=== PATIENT | female | born 1980 | race Caucasian/White ===

== ENCOUNTER 2016-06-25 18:50 | Emergency (ER) | payer MEDICAID ==
[2014-07-03 06:22] VITALS: BMI 25.9
[~2016-06-25 18:50] MED LIST: CLEOCIN HCL300 MG PO; DILAUDID4 MG PO; HYDROCODONE-APA1 TAB PO; KLONOPIN1 MG PO; MELATONIN 3 MG1 TAB PO; SOMA350 MG PO; VIBRAMYCIN50 MG PO; XANAX2 MG PO
== END 2016-06-25 21:07 | disposition home or self-care (01) ==
LOC: D.ER 18:50
DX: M54.5 Low back pain (principal); F17.200 Nicotine dependence, unspecified, uncomplicated

== ENCOUNTER 2017-11-23 20:33 | Emergency (ER) | payer MEDICAID ==
[2014-07-03 06:22] VITALS: BMI 25.9
== END 2017-11-23 23:55 | disposition home or self-care (01) ==
LOC: D.ER 20:33
DX: S61.213A Laceration without foreign body of left middle finger without damage to nail, initial encounter (principal); S61.215A Laceration without foreign body of left ring finger without damage to nail, initial encounter; W26.8XXA Contact with other sharp object(s), not elsewhere classified, initial encounter; Y93.H2 Activity, gardening and landscaping; Y92.017 Garden or yard in single-family (private) house as the place of occurrence of the external cause

== ENCOUNTER 2017-12-03 13:15 | Inpatient (IN) | payer MEDICAID ==
[~2017-12-03] VITALS: Ht 170.2 cm; Wt 95.0 kg
--- NOTE | ~2017-12-03 | OP ---
PATIENT NAME: MEGHANN HASKINS MEDICAL RECORD: [id number] :82 LOCATION:.[facility] D.2305 ADMISSION DATE:12/03/17 SURGEON: JUAN HOLLIDAY MD DATE OF OPERATION: 12/07/2017 SURGEON: Juan Holliday MD APPLIANCE FIXER: CHIQUITA Guo OPERATIONS PERFORMED: Right thoracoscopy, thoracotomy with total decortication, bronchoscopy. PREOPERATIVE DIAGNOSIS: Empyema. POSTOPERATIVE DIAGNOSIS: Empyema. ANESTHESIA: Double-lumen general endotracheal anesthesia. ESTIMATED BLOOD LOSS: 100 cc. COMPLICATIONS: None. SPECIMENS: 1. Pleural fluid for cultures and cytology. 2. Pleural peel for permanent pathology. COMPLICATIONS: None. DISPOSITION: ICU. OPERATIVE FINDINGS: Dense pleural peel would not allow adequate visualization with thoracoscopy, converted to thoracotomy with total decortication. Dense thick pleural rind, complete decortication, and good reexpansion with a small air leak. Operative bronchoscopy with no endobronchial lesions. OPERATIVE INDICATIONS: Trapped lung, empyema. OPERATIVE DESCRIPTION OF PROCEDURE: The patient was brought to the operating suite, general anesthesia with a double-lumen endotracheal tube was placed. Bronchoscopy performed. No endobronchial lesions noted. The patient turned in the left lateral decubitus position with appropriate padding including axillary roll, right chest sterilely prepped and draped. Incision was made below the tip of the scapula. Scope was inserted. There was no room even after removing fluid for scope. Therefore, the site was converted to a thoracotomy. A lateral thoracotomy was made. A section of rib was removed. The pleural cavity was entered. The dense pleural rind was removed carefully. All fluid and debris were removed. Lung was completely freed from the apex down to the diaphragm posterior to anterior, including in the fissures. Good reexpansion was noted. Large chest tube was placed posteriorly and anteriorly. Thorough irrigation was undertaken. Hemostasis was assured. The wound was closed with 2 running muscle layer, subcutaneous, and skin. The patient returned to supine position, extubated to the ICU in stable condition. TRANSINT:[id number] Voice Confirmation ID: [id number] DOCUMENT ID: [id number] OPERATIVE REPORT [id number] MEGHANN HASKINS JUAN HOLLIDAY MD at 0821 CC: ARLETTE DIXON MD [id number] DICTATION DATE: 12/07/172016 ASSEMBLIES AND INSTALLATIONS INSPECTOR: 12/08/17 0108 ADM IN [facility] [address] [place], [facility]
--- NOTE | ~2017-12-03 | OP ---
PATIENT NAME: MEGHANN HASKINS MEDICAL RECORD: [id number] :82 LOCATION:[facility] D.2305 ADMISSION DATE:12/03/17 SURGEON: KEEGAN REYES MD DATE OF OPERATION: 12/03/2017 SURGEON: Keegan Reyes MD ANESTHESIA: General, Dr. Ho. OPERATION PERFORMED: Insertion of right chest tube. PREOPERATIVE DIAGNOSIS: Loculated empyema, right hemithorax. POSTOPERATIVE DIAGNOSIS: Loculated empyema, right hemithorax. INDICATION FOR OPERATION: Loculated empyema. FINDINGS AT OPERATION: Loculated empyema, 1000 mL of serous fluid removed. ESTIMATED BLOOD LOSS: Less than 3 mL. DESCRIPTION OF PROCEDURE: After informed consent and adequate preoperative medication evaluation, the patient was brought to the operating room, placed on the table in supine position. After induction of general anesthesia and application of appropriate monitoring devices, the right chest was prepped and draped in sterile field, utilizing Betadine scrub, alcohol, and Betadine solution. Betadine-impregnated drape was also used. A #28 chest tube was placed in the right hemithorax with removal of the fluid. This was connected to underwater seal and suction. Sterile dressings were applied. The patient tolerated the procedure well and transferred to postanesthesia recovery in satisfactory condition. TRANSINT:[id number] Voice Confirmation ID: [id number] DOCUMENT ID: [id number] KEEGAN REYES MD at 1619 CC: [id number] DICTATION DATE: 01/08/18 1213 EXTERNAL RELATIONS MANAGER: 01/08/18 1223 DIS IN 12/13/17 [place] [address]
--- NOTE | ~2017-12-03 | CN ---
PATIENT NAME:MEGHANN CURTIS MEDICAL RECORD: [id number] : 82 LOCATION:[facility].2305 ADMIT DATE: 12/03/17 ACCOUNT: [id number] CONSULTING PHYSICIAN: ARLETTE DIXON MD REFERRING PHYSICIAN: OLAMIDE COUCH MD DATE OF CONSULTATION: 12/05/2017 CONSULT REQUESTING PHYSICIAN: Olamide Couch MD REASON FOR CONSULTATION: Large right-sided pleural effusion, pneumonia. HISTORY OF PRESENT ILLNESS: Ms. Curtis is a 37-year-old female who is sick for the last 4-5 days. It worse yesterday, the patient did have some fever. She has a cough without significant sputum production. She is also having right-sided pleuritic type chest pain and also abdominal pain, worse with deep breathing. REVIEW OF SYSTEMS: As in history of present illness. PAST MEDICAL HISTORY: 1. Asthma. 2. History of pneumonia. 3. History of kidney stone and UTIs. 4. Chronic backache. 5. Bipolar disorder and depression. PAST SURGICAL HISTORY: Lumbar laminectomy. ALLERGIES: SHE IS ALLERGIC TO SULFA, TORADOL AND TETRACYCLINE. MEDICATIONS: On Tagwhat is reviewed. PERSONAL AND SOCIAL HISTORY: The patient is a current every day smoker. She is a nondrinker. FAMILY HISTORY: Significant for cardiovascular disease in her parents. PHYSICAL EXAMINATION: GENERAL: The patient now is in acute respiratory distress. VITAL SIGNS: Blood pressure is 133/78, pulse is 107, respiration is 31, temperature 100.9, SpO2 is 91% on 4 liters nasal cannula. HEENT: Conjunctivae are pink. Sclerae are not icteric. NECK: The neck is supple. There is no JVD. CHEST: There are absent breath sounds on the right side. Dullness on percussion. There is no wheezing. HEART: Rhythm regular, normal sound, no murmur. ABDOMEN: The abdomen is soft, bowel sounds present. No hepatosplenomegaly. RECTAL: Deferred. EXTREMITIES: No cyanosis, no clubbing. There is no pedal edema. SKIN: The skin is warm, normal turgor. CENTRAL NERVOUS SYSTEM: The patient is awake and alert. There are no obvious cranial nerve abnormality. The gait was not tested. IMAGING: CTA of the chest: There is no PE. There is a large right-sided pleural effusion with compressive atelectasis of the right lung. There is CONSULT REPORT [id number] MEGHANN CURTIS consolidation of the right lung. There is left basilar consolidation. There is also some bronchiectasis. OTHER LABORATORY DATA: WBC is 29.1, hemoglobin 12.2, hematocrit 36.4, the platelet count 356. Chemistry: Sodium 134, potassium 4.3, BUN is 5, creatinine is 0.6. The bicarbonate is 17.70. ABG: The pH is 7.42, pCO2 is 35.5, pO2 is 72, bicarbonate is 23.2. IMPRESSION: 1. Acute hypoxic respiratory failure. 2. Large right pleural effusion, most likely secondary to empyema with recent fever, pleuritic type of chest pain, rule out malignant process, rule out perforated esophagus. 3. Compressive atelectasis. 4. Pneumonia, right lower lobe, most likely community-acquired pneumonia, possible strep pneumonia with aggressive pleural effusion. 5. Leukocytosis. 6. Asthma. 7. Tobacco dependence syndrome. RECOMMENDATION: 1. Continue supplemental oxygen. I spoke with Dr. Reyes. He is going to take her emergently to the OR for a VATS and possible decortication and chest tube placement. 2. Antibiotic per Dr. Davis. 3. Follow up labs and chest radiograph. 4. Xopenex and ipratropium nebulizer. 5. Add Brovana and budesonide nebulizer. The order for the thoracentesis of pleural fluid has been written. Dr. oCuch, thank you for involving me in the care of Ms. Curtis. TRANSINT:[id number] Voice Confirmation ID: [id number] DOCUMENT ID: [id number] ARLETTE DIXON MD at 1806 CC: [id number] DICTATION DATE: 12/05/17 1610 ADVERTISING COPY WRITER: 12/05/17 1852 ADM IN [facility] [address] [place] [address]
[2017-12-03 13:57] LABS: APPEARANCE CLEAR (CLEAR); BILIRUBIN NEGATIVE (NEGATIVE); COLOR YELLOW (YELLOW); GLUCOSE NEGATIVE (NEGATIVE); KETONE NEGATIVE (NEGATIVE); NITRITE NEGATIVE (NEGATIVE); PROTEIN TRACE mg/dL (NEGATIVE); UROBILINOGEN NORMAL (NORMAL)
[2017-12-03 14:00] VITALS: BP 107/57
[2017-12-03 14:33] LABS: BASOPHILS 0.1 % (0-2); EOSINOPHILS 1.3 % (0-7); HEMOGLOBIN 11.5 g/dL (12-16); IMMATURE GRANULOCYTES 0.4 % (0-5); LYMPHOCYTES 8.8 % (15-50); MCH 28.7 pg (26.0-34.0); MCHC 33.8 g/dL (31.0-37.0); MCV 84.8 fL (80.0-100.0); MEAN PLATELET VOLUME 9.4 fL (7.4-10.4); NEUTROPHILS 82.4 % (40-80); RBC 4.01 10x6/uL (4.00-5.40); RDW 12.7 % (11.5-14.5); WBC 14.4 10x3/uL (4.8-10.8)
[2017-12-03 14:41] LABS: PLATELET COUNT 310 10x3/uL (130-400)
[2017-12-03 15:00] VITALS: BP 106/61
[2017-12-03 15:04] LABS: ALBUMIN 3.4 g/dL (3.4-5.0); ALKALINE PHOSPHATASE 92 U/L (46-116); ALT (SGPT) 18 U/L (10-68); CALC OSMOLALITY 273 mosm/kg (275-300); CALCIUM 8.8 mg/dL (8.5-10.1); CARBON DIOXIDE 25.3 mmol/L (21.0-32.0); CHLORIDE - SERUM 101 mmol/L (98-107); CREATININE - SERUM 0.8 mg/dL (0.6-1.3); GLUCOSE 112 mg/dL (74-106); POTASSIUM - SERUM 4.1 mmol/L (3.5-5.1); PROTEIN - SERUM 7.4 g/dL (6.4-8.2); SODIUM 137 mmol/L (136-145); UREA NITROGEN 9 mg/dL (7-18); eGFR NON AFRICAN AMERICAN 86 mL/min (90-120)
[2017-12-03 19:02] VITALS: BP 108/64
[2017-12-03 21:10] VITALS: BP 115/57
[2017-12-04] VITALS (7 sets, daily range): BP systolic 112–144; BP diastolic 57–74; BMI 29.0
[2017-12-04 00:38] LABS: HCG URINE NEGATIVE (NEGATIVE)
[2017-12-04 00:41] LABS: APPEARANCE CLEAR (CLEAR); BILIRUBIN NEGATIVE (NEGATIVE); COLOR YELLOW (YELLOW); GLUCOSE NEGATIVE (NEGATIVE); KETONE NEGATIVE (NEGATIVE); NITRITE NEGATIVE (NEGATIVE); PROTEIN NEGATIVE (NEGATIVE); UROBILINOGEN NORMAL (NORMAL)
[2017-12-04 00:43] LABS: BACTERIA MODERATE /hpf (NONE SEEN); EPITHELIAL CELLS 0-5 /hpf (0-5); MUCUS <1+ /lpf (NONE SEEN); RED CELLS - URINE 0-5 /hpf (0-5); WHITE CELLS - URINE 0-5 /hpf (0-5)
[2017-12-04 00:54] LABS: UDS - AMPHET POSITIVE QUAL (NEGATIVE); UDS - BARB NEGATIVE QUAL (NEGATIVE); UDS - BENZO POSITIVE QUAL (NEGATIVE); UDS - COCAINE NEGATIVE QUAL (NEGATIVE); UDS - OPIATE POSITIVE QUAL (NEGATIVE); UDS - PCP NEGATIVE QUAL (NEGATIVE); UDS - THC NEGATIVE QUAL (NEGATIVE)
[2017-12-04 13:38] LABS: HEMATOCRIT 35.9 % (36.0-48.0); HEMOGLOBIN 12.3 g/dL (12-16); MCH 28.9 pg (26.0-34.0); MCHC 34.3 g/dL (31.0-37.0); MCV 84.5 fL (80.0-100.0); MEAN PLATELET VOLUME 9.6 fL (7.4-10.4); PLATELET COUNT 256 10x3/uL (130-400); RBC 4.25 10x6/uL (4.00-5.40); RDW 12.8 % (11.5-14.5); WBC 25.8 10x3/uL (4.8-10.8)
[2017-12-04 14:05] LABS: AMYLASE - SERUM 13 U/L (25-115); CREATININE - SERUM 0.6 mg/dL (0.6-1.3); GLUCOSE 105 mg/dL (74-106); LIPASE 72 U/L (73-393)
[2017-12-04 14:06] LABS: ALKALINE PHOSPHATASE 76 U/L (46-116); CARBON DIOXIDE 26.6 mmol/L (21.0-32.0); CHLORIDE - SERUM 99 mmol/L (98-107); CHOL - HDL RATIO 1.8 ratio (2.3-4.1); CHOLESTEROL, TOTAL 97 mg/dL (0-200); CKMB 0.5 U/L (0.0-3.6); CREATINE KINASE 22 UL (21-215); HDL CHOLESTEROL 53 mg/dL (32-96); LDL CHOLESTEROL 37 mg/dL (0-100); LDL-HDL RATIO 0.7 ratio (1.5-3.5); POTASSIUM - SERUM 3.8 mmol/L (3.5-5.1); PROTEIN - SERUM 6.9 g/dL (6.4-8.2); SODIUM 134 mmol/L (136-145); TRIGLYCERIDE 36 mg/dL (30-200); TROPONIN-I < 0.017 ng/mL (0.000-0.060); eGFR NON AFRICAN AMERICAN > 90 mL/min (90-120)
[2017-12-04 14:07] LABS: ALBUMIN 2.5 g/dL (3.4-5.0); ALT (SGPT) 13 U/L (10-68); CALC OSMOLALITY 264 mosm/kg (275-300); UREA NITROGEN 5 mg/dL (7-18)
[2017-12-04 14:19] LABS: C-REACTIVE PROTEIN 29.4 mg/dL (0.0-0.9)
[2017-12-04 14:33] LABS: LYMPHOCYTES 6 % (15-50); MONOCYTES 3 % (2-11); NEUTROPHILS 87 % (40-80); PLATELET ESTIMATE NORMAL
[2017-12-04 18:04] LABS: CKMB 0.8 U/L (0.0-3.6); CREATINE KINASE 22 UL (21-215)
[2017-12-04 18:05] LABS: TROPONIN-I < 0.017 ng/mL (0.000-0.060)
[2017-12-05] VITALS (21 sets, daily range): BP systolic 104–161; BP diastolic 60–91
[2017-12-05 00:06] LABS: CKMB 0.3 U/L (0.0-3.6); CREATINE KINASE 21 UL (21-215); TROPONIN-I < 0.017 ng/mL (0.000-0.060)
[2017-12-05 06:24] LABS: BASOPHILS 0.1 % (0-2); EOSINOPHILS 0.1 % (0-7); HEMATOCRIT 36.4 % (36.0-48.0); HEMOGLOBIN 12.2 g/dL (12-16); IMMATURE GRANULOCYTES 0.5 % (0-5); LYMPHOCYTES 3.8 % (15-50); MCH 28.5 pg (26.0-34.0); MCHC 33.5 g/dL (31.0-37.0); MEAN PLATELET VOLUME 9.5 fL (7.4-10.4); MONOCYTES 8.7 % (2-11); NEUTROPHILS 86.8 % (40-80); PLATELET COUNT 356 10x3/uL (130-400); RBC 4.28 10x6/uL (4.00-5.40); RDW 13.1 % (11.5-14.5); WBC 29.1 10x3/uL (4.8-10.8)
[2017-12-05 06:49] LABS: ALBUMIN 2.4 g/dL (3.4-5.0); ALKALINE PHOSPHATASE 86 U/L (46-116); ALT (SGPT) 11 U/L (10-68); CALC OSMOLALITY 264 mosm/kg (275-300); CALCIUM 8.8 mg/dL (8.5-10.1); CARBON DIOXIDE 22.6 mmol/L (21.0-32.0); CHLORIDE - SERUM 98 mmol/L (98-107); CREATININE - SERUM 0.6 mg/dL (0.6-1.3); GLUCOSE 95 mg/dL (74-106); POTASSIUM - SERUM 4.3 mmol/L (3.5-5.1); PROTEIN - SERUM 6.2 g/dL (6.4-8.2); SODIUM 134 mmol/L (136-145); UREA NITROGEN 5 mg/dL (7-18); eGFR NON AFRICAN AMERICAN > 90 mL/min (90-120)
[2017-12-05 18:13] LABS: PROTEIN - BODY FLUID 5.7 G/DL
[2017-12-05 19:41] LABS: MACROPHAGES BF 16 %; NEUT - BF 79 %
[2017-12-06] VITALS (25 sets, daily range): BP systolic 98–154; BP diastolic 57–90; Ht 170.2 cm; Wt 95.0 kg
[2017-12-06 03:32] LABS: BASOPHILS 0.1 % (0-2); EOSINOPHILS 0.4 % (0-7); HEMATOCRIT 33.2 % (36.0-48.0); HEMOGLOBIN 11.2 g/dL (12-16); IMMATURE GRANULOCYTES 0.7 % (0-5); MCH 28.7 pg (26.0-34.0); MCHC 33.7 g/dL (31.0-37.0); MCV 85.1 fL (80.0-100.0); MEAN PLATELET VOLUME 9.2 fL (7.4-10.4); MONOCYTES 7.6 % (2-11); NEUTROPHILS 83.2 % (40-80); PLATELET COUNT 351 10x3/uL (130-400); RDW 13.2 % (11.5-14.5)
[2017-12-06 03:35] LABS: WBC 19.5 10x3/uL (4.8-10.8)
[2017-12-06 03:48] LABS: ALBUMIN 2.1 g/dL (3.4-5.0); ALKALINE PHOSPHATASE 76 U/L (46-116); ALT (SGPT) 11 U/L (10-68); BILIRUBIN - TOTAL 0.26 mg/dL (0.2-1.3); CALCIUM 8.7 mg/dL (8.5-10.1); CARBON DIOXIDE 26.8 mmol/L (21.0-32.0); CHLORIDE - SERUM 100 mmol/L (98-107); CREATININE - SERUM 0.7 mg/dL (0.6-1.3); GLUCOSE 103 mg/dL (74-106); POTASSIUM - SERUM 3.8 mmol/L (3.5-5.1); PROTEIN - SERUM 7.1 g/dL (6.4-8.2); SODIUM 135 mmol/L (136-145); eGFR NON AFRICAN AMERICAN > 90 mL/min (90-120)
[2017-12-06 03:51] LABS: CALC OSMOLALITY 267 mosm/kg (275-300); UREA NITROGEN 8 mg/dL (7-18)
[2017-12-06 14:27] LABS: HEMATOCRIT 33.3 % (36.0-48.0); HEMOGLOBIN 11.1 g/dL (12-16); MCH 28.7 pg (26.0-34.0); MCHC 33.3 g/dL (31.0-37.0); MEAN PLATELET VOLUME 9.2 fL (7.4-10.4); RBC 3.87 10x6/uL (4.00-5.40); RDW 13.4 % (11.5-14.5); WBC 17.1 10x3/uL (4.8-10.8)
[2017-12-06 14:35] LABS: APTT 29.2 SECONDS (22.8-39.4); INR 1.11 (0.85-1.17); PROTIME 13.9 SECONDS (11.6-15.0)
[2017-12-06 14:42] LABS: ALBUMIN 2.2 g/dL (3.4-5.0); ALKALINE PHOSPHATASE 76 U/L (46-116); ALT (SGPT) 11 U/L (10-68); BILIRUBIN - TOTAL 0.14 mg/dL (0.2-1.3); CALC OSMOLALITY 272 mosm/kg (275-300); CALCIUM 8.6 mg/dL (8.5-10.1); CARBON DIOXIDE 29.8 mmol/L (21.0-32.0); CHLORIDE - SERUM 99 mmol/L (98-107); CREATININE - SERUM 0.6 mg/dL (0.6-1.3); GLUCOSE 100 mg/dL (74-106); POTASSIUM - SERUM 3.9 mmol/L (3.5-5.1); PROTEIN - SERUM 6.7 g/dL (6.4-8.2); SODIUM 137 mmol/L (136-145); UREA NITROGEN 10 mg/dL (7-18); eGFR NON AFRICAN AMERICAN > 90 mL/min (90-120)
[2017-12-07] VITALS (19 sets, daily range): BP systolic 104–140; BP diastolic 58–73
[2017-12-07 06:23] LABS: BASOPHILS 0.1 % (0-2); EOSINOPHILS 1.2 % (0-7); HEMATOCRIT 31.1 % (36.0-48.0); HEMOGLOBIN 10.2 g/dL (12-16); IMMATURE GRANULOCYTES 0.6 % (0-5); LYMPHOCYTES 8.3 % (15-50); MCHC 32.8 g/dL (31.0-37.0); MCV 85.4 fL (80.0-100.0); MEAN PLATELET VOLUME 9.2 fL (7.4-10.4); MONOCYTES 8.9 % (2-11); NEUTROPHILS 80.9 % (40-80); PLATELET COUNT 373 10x3/uL (130-400); RBC 3.64 10x6/uL (4.00-5.40); RDW 13.4 % (11.5-14.5); WBC 13.9 10x3/uL (4.8-10.8)
[2017-12-07 06:44] LABS: ALKALINE PHOSPHATASE 71 U/L (46-116); ALT (SGPT) 10 U/L (10-68); CALC OSMOLALITY 274 mosm/kg (275-300); CALCIUM 8.6 mg/dL (8.5-10.1); CARBON DIOXIDE 27.8 mmol/L (21.0-32.0); CHLORIDE - SERUM 101 mmol/L (98-107); CREATININE - SERUM 0.5 mg/dL (0.6-1.3); GLUCOSE 105 mg/dL (74-106); PROTEIN - SERUM 6.9 g/dL (6.4-8.2); SODIUM 138 mmol/L (136-145); UREA NITROGEN 9 mg/dL (7-18); eGFR NON AFRICAN AMERICAN > 90 mL/min (90-120)
[2017-12-07 06:45] LABS: POTASSIUM - SERUM 3.3 mmol/L (3.5-5.1)
[2017-12-07 14:23] LABS: HEPATITIS C ANTIBODY >11.0 (0.0-0.9)
[2017-12-07 19:11] LABS: AFB SPECIMEN PROCESSING Not Indicated (())
[2017-12-08] VITALS (25 sets, daily range): BP systolic 94–147; BP diastolic 61–98
[2017-12-08 03:11] LABS: RMSF IGM 0.95 index (0.00-0.89)
[2017-12-08 04:03] LABS: BASOPHILS 0.1 % (0-2); EOSINOPHILS 0.2 % (0-7); HEMATOCRIT 34.4 % (36.0-48.0); HEMOGLOBIN 11.4 g/dL (12-16); IMMATURE GRANULOCYTES 0.9 % (0-5); LYMPHOCYTES 4.8 % (15-50); MCH 28.4 pg (26.0-34.0); MCHC 33.1 g/dL (31.0-37.0); MCV 85.6 fL (80.0-100.0); MONOCYTES 7.3 % (2-11); NEUTROPHILS 86.7 % (40-80); PLATELET COUNT 403 10x3/uL (130-400); RBC 4.02 10x6/uL (4.00-5.40); RDW 13.4 % (11.5-14.5)
[2017-12-08 04:05] LABS: APPEARANCE CLEAR (CLEAR); BILIRUBIN NEGATIVE (NEGATIVE); COLOR YELLOW (YELLOW); GLUCOSE NEGATIVE (NEGATIVE); KETONE SMALL mg/dL (NEGATIVE); NITRITE NEGATIVE (NEGATIVE); PROTEIN NEGATIVE (NEGATIVE); UROBILINOGEN NORMAL (NORMAL); WBC 17.6 10x3/uL (4.8-10.8)
[2017-12-08 04:19] LABS: ALBUMIN 1.9 g/dL (3.4-5.0); ALKALINE PHOSPHATASE 67 U/L (46-116); BILIRUBIN - TOTAL 0.22 mg/dL (0.2-1.3); CALC OSMOLALITY 273 mosm/kg (275-300); CALCIUM 8.3 mg/dL (8.5-10.1); CARBON DIOXIDE 29.7 mmol/L (21.0-32.0); CHLORIDE - SERUM 101 mmol/L (98-107); CREATININE - SERUM 0.6 mg/dL (0.6-1.3); GLUCOSE 111 mg/dL (74-106); PROTEIN - SERUM 6.7 g/dL (6.4-8.2); SODIUM 137 mmol/L (136-145); UREA NITROGEN 11 mg/dL (7-18); eGFR NON AFRICAN AMERICAN > 90 mL/min (90-120)
[2017-12-08 04:20] LABS: ALT (SGPT) 16 U/L (10-68)
[2017-12-09] VITALS (23 sets, daily range): BP systolic 112–129; BP diastolic 62–75
[2017-12-09 04:40] LABS: BASOPHILS 0.2 % (0-2); EOSINOPHILS 0.9 % (0-7); HEMATOCRIT 31.3 % (36.0-48.0); HEMOGLOBIN 10.3 g/dL (12-16); IMMATURE GRANULOCYTES 1.2 % (0-5); LYMPHOCYTES 9.5 % (15-50); MCH 28.2 pg (26.0-34.0); MCHC 32.9 g/dL (31.0-37.0); MCV 85.8 fL (80.0-100.0); MEAN PLATELET VOLUME 9.2 fL (7.4-10.4); MONOCYTES 10.4 % (2-11); NEUTROPHILS 77.8 % (40-80); PLATELET COUNT 407 10x3/uL (130-400); RBC 3.65 10x6/uL (4.00-5.40); RDW 13.6 % (11.5-14.5); WBC 17.6 10x3/uL (4.8-10.8)
[2017-12-09 04:53] LABS: ALBUMIN 1.6 g/dL (3.4-5.0); ALKALINE PHOSPHATASE 59 U/L (46-116); ALT (SGPT) 13 U/L (10-68); BILIRUBIN - TOTAL 0.17 mg/dL (0.2-1.3); CALC OSMOLALITY 264 mosm/kg (275-300); CALCIUM 8.2 mg/dL (8.5-10.1); CARBON DIOXIDE 30.1 mmol/L (21.0-32.0); CHLORIDE - SERUM 98 mmol/L (98-107); CREATININE - SERUM 0.6 mg/dL (0.6-1.3); GLUCOSE 96 mg/dL (74-106); POTASSIUM - SERUM 3.9 mmol/L (3.5-5.1); PROTEIN - SERUM 6.5 g/dL (6.4-8.2); SODIUM 133 mmol/L (136-145); UREA NITROGEN 10 mg/dL (7-18); eGFR NON AFRICAN AMERICAN > 90 mL/min (90-120)
[2017-12-09 17:07] LABS: ACID FAST SMEAR Negative (()); AFB SPECIMEN PROCESSING Concentration (())
[2017-12-10] VITALS (24 sets, daily range): BP systolic 103–131; BP diastolic 49–89
[2017-12-10 06:02] LABS: HEMATOCRIT 30.5 % (36.0-48.0); MCHC 32.8 g/dL (31.0-37.0); MCV 85.4 fL (80.0-100.0); MEAN PLATELET VOLUME 9.2 fL (7.4-10.4); RBC 3.57 10x6/uL (4.00-5.40); RDW 13.6 % (11.5-14.5); WBC 14.9 10x3/uL (4.8-10.8)
[2017-12-10 06:10] LABS: CALC OSMOLALITY 270 mosm/kg (275-300); CALCIUM 8.2 mg/dL (8.5-10.1); CARBON DIOXIDE 29.4 mmol/L (21.0-32.0); CHLORIDE - SERUM 99 mmol/L (98-107); CREATININE - SERUM 0.5 mg/dL (0.6-1.3); GLUCOSE 98 mg/dL (74-106); POTASSIUM - SERUM 3.6 mmol/L (3.5-5.1); SODIUM 136 mmol/L (136-145); UREA NITROGEN 9 mg/dL (7-18); eGFR NON AFRICAN AMERICAN > 90 mL/min (90-120)
[2017-12-10 11:24] LABS: % SATURATION 7 % (15-55); IRON 13 ug/dl (35-150); TOTAL IRON BIND CAPACITY 182 ug/dl (260-445); UNSAT IRON BIND CAPACITY 169 ug/dl (150-375)
[2017-12-10 13:13] LABS: ANA REFLEX - ANTICHROMATIN ABS <0.2 AI (0.0-0.9); ANA REFLEX - CENTROMERE B ABS <0.2 AI (0.0-0.9); ANA REFLEX - DBL STRANDED DNA <1 IU/mL (0-9); ANA REFLEX - DIRECT Positive (Negative); ANA REFLEX - JO-1 AB <0.2 AI (0.0-0.9); ANA REFLEX - RNP ANTIBODIES 0.2 AI (0.0-0.9); ANA REFLEX - SCL-70 <0.2 AI (0.0-0.9); ANA REFLEX - SJOGRENS AB SSB <0.2 AI (0.0-0.9); ANA REFLEX - SMITH AB <0.2 AI (0.0-0.9)
[2017-12-10 13:13] LABS: FUNGUS STAIN Final report (())
[2017-12-10 16:12] LABS: EHRLICHIA CHAFF IGG Negative (Neg:<1:64); EHRLICHIA CHAFF IGM Negative (Neg:<1:20); HGE IGG TITER Negative (Neg:<1:64); HGE IGM TITER Negative (Neg:<1:20)
[2017-12-11] VITALS (21 sets, daily range): BP systolic 99–131; BP diastolic 44–79
[2017-12-11 04:19] LABS: BASOPHILS 0.3 % (0-2); EOSINOPHILS 2.7 % (0-7); HEMATOCRIT 30.9 % (36.0-48.0); HEMOGLOBIN 10.1 g/dL (12-16); IMMATURE GRANULOCYTES 3.2 % (0-5); LYMPHOCYTES 15.3 % (15-50); MCH 27.9 pg (26.0-34.0); MCHC 32.7 g/dL (31.0-37.0); MCV 85.4 fL (80.0-100.0); MEAN PLATELET VOLUME 9.5 fL (7.4-10.4); MONOCYTES 9.5 % (2-11); PLATELET COUNT 462 10x3/uL (130-400); RBC 3.62 10x6/uL (4.00-5.40); RDW 13.4 % (11.5-14.5); WBC 13.1 10x3/uL (4.8-10.8)
[2017-12-11 04:50] LABS: ALBUMIN 1.9 g/dL (3.4-5.0); ALKALINE PHOSPHATASE 63 U/L (46-116); BILIRUBIN - TOTAL 0.18 mg/dL (0.2-1.3); CALC OSMOLALITY 271 mosm/kg (275-300); CALCIUM 8.5 mg/dL (8.5-10.1); CARBON DIOXIDE 30.2 mmol/L (21.0-32.0); CHLORIDE - SERUM 98 mmol/L (98-107); CREATININE - SERUM 0.6 mg/dL (0.6-1.3); GLUCOSE 108 mg/dL (74-106); PHOSPHOROUS 3.7 mg/dL (2.5-4.9); POTASSIUM - SERUM 3.3 mmol/L (3.5-5.1); PROTEIN - SERUM 7.1 g/dL (6.4-8.2); SODIUM 136 mmol/L (136-145); UREA NITROGEN 11 mg/dL (7-18); eGFR NON AFRICAN AMERICAN > 90 mL/min (90-120)
[2017-12-11 04:53] LABS: ALT (SGPT) 51 U/L (10-68)
[2017-12-11 08:19] LABS: FOLATE (FOLIC ACID) - SERUM 6.2 ng/mL (>3.0)
[2017-12-11 14:23] LABS: F. TULARENSIS - IGG Negative (()); F. TULARENSIS - IGM Negative (())
[2017-12-12] VITALS (23 sets, daily range): BP systolic 97–135; BP diastolic 43–69
[2017-12-12 04:24] LABS: BASOPHILS 0.4 % (0-2); EOSINOPHILS 2.9 % (0-7); HEMATOCRIT 31.7 % (36.0-48.0); HEMOGLOBIN 10.4 g/dL (12-16); IMMATURE GRANULOCYTES 3.6 % (0-5); LYMPHOCYTES 19.5 % (15-50); MCHC 32.8 g/dL (31.0-37.0); MCV 85.2 fL (80.0-100.0); MEAN PLATELET VOLUME 9.6 fL (7.4-10.4); NEUTROPHILS 64.6 % (40-80); PLATELET COUNT 480 10x3/uL (130-400); RBC 3.72 10x6/uL (4.00-5.40); RDW 13.3 % (11.5-14.5); WBC 11.1 10x3/uL (4.8-10.8)
[2017-12-12 12:18] LABS: FUNGUS STAIN Final report (())
[2017-12-12] MEDS ORDERED: DURAGESIC1 PATCH .7 TRANSDERM (14:12)
[2017-12-13] VITALS (12 sets, daily range): BP systolic 88–115; BP diastolic 45–60
[2017-12-13 05:02] LABS: BASOPHILS 0.2 % (0-2); EOSINOPHILS 2.6 % (0-7); HEMATOCRIT 31.1 % (36.0-48.0); IMMATURE GRANULOCYTES 3.3 % (0-5); LYMPHOCYTES 19.1 % (15-50); MCH 27.5 pg (26.0-34.0); MCHC 32.2 g/dL (31.0-37.0); MCV 85.7 fL (80.0-100.0); MEAN PLATELET VOLUME 9.7 fL (7.4-10.4); MONOCYTES 8.7 % (2-11); NEUTROPHILS 66.1 % (40-80); PLATELET COUNT 521 10x3/uL (130-400); RBC 3.63 10x6/uL (4.00-5.40); RDW 13.6 % (11.5-14.5); WBC 11.4 10x3/uL (4.8-10.8)
[2017-12-13 05:32] LABS: CALC OSMOLALITY 268 mosm/kg (275-300); CALCIUM 8.7 mg/dL (8.5-10.1); CHLORIDE - SERUM 101 mmol/L (98-107); CREATININE - SERUM 0.6 mg/dL (0.6-1.3); GLUCOSE 96 mg/dL (74-106); MAGNESIUM - SERUM 1.8 mg/dL (1.8-2.4); PHOSPHOROUS 3.8 mg/dL (2.5-4.9); POTASSIUM - SERUM 4.2 mmol/L (3.5-5.1); SODIUM 135 mmol/L (136-145); UREA NITROGEN 9 mg/dL (7-18); eGFR NON AFRICAN AMERICAN > 90 mL/min (90-120)
[2017-12-13] MEDS ORDERED: CLEOCIN HCL150 MG PO (09:45)
[2017-12-13] MEDS ORDERED: KEFLEX500 MG PO (09:46)
[2017-12-18 08:20] LABS: VIRAL - RESULT No virus isolated. (())
[2018-01-07 08:41] LABS: FUNGUS MYCOLOGY CULTURE Final report (())
[2018-01-07 08:41] LABS: FUNGUS MYCOLOGY CULTURE Final report (())
[2018-01-26 13:11] LABS: ACID FAST CULTURE Negative (()); ACID FAST SMEAR Negative (())
== END 2017-12-13 12:05 | disposition home or self-care (01) | DRG 163 ==
LOC: D.ER 13:15 → D.ICU 18:41 → D.EDHOLD 18:41 → D.MS 18:41 → D.ICU 12-05 16:01
PROVIDERS: Emergency Medicine; Family Medicine; Internal Medicine Cardiovascular Disease; Internal Medicine Nephrology; Internal Medicine Pulmonary Disease; Thoracic Surgery (Cardiothoracic Vascular Surgery)
PROC: 05HC33Z Insertion of Infusion Device into Left Basilic Vein, Percutaneous Approach (ICD-10-PCS; principal; 2017-12-04)
PROC: B54NZZA Ultrasonography of Left Upper Extremity Veins, Guidance (ICD-10-PCS; 2017-12-04)
PROC: 0W9930Z Drainage of Right Pleural Cavity with Drainage Device, Percutaneous Approach (ICD-10-PCS; 2017-12-05)
PROC: 0BCK0ZZ Extirpation of Matter from Right Lung, Open Approach (ICD-10-PCS; 2017-12-07)
PROC: 0BJ08ZZ Inspection of Tracheobronchial Tree, Via Natural or Artificial Opening Endoscopic (ICD-10-PCS; 2017-12-07)
DX: J86.9 Pyothorax without fistula (principal); J96.01 Acute respiratory failure with hypoxia; J15.4 Pneumonia due to other streptococci; J98.11 Atelectasis; J90 Pleural effusion, not elsewhere classified; M35.1 Other overlap syndromes; N39.0 Urinary tract infection, site not specified; G89.29 Other chronic pain; M54.9 Dorsalgia, unspecified; F31.9 Bipolar disorder, unspecified; J45.909 Unspecified asthma, uncomplicated; F98.8 Other specified behavioral and emotional disorders with onset usually occurring in childhood and adolescence; F42.9 Obsessive-compulsive disorder, unspecified; F17.200 Nicotine dependence, unspecified, uncomplicated; T14.8XXA Other injury of unspecified body region, initial encounter; R79.82 Elevated C-reactive protein (CRP); R53.81 Other malaise; F15.10 Other stimulant abuse, uncomplicated; B19.20 Unspecified viral hepatitis C without hepatic coma; E87.6 Hypokalemia; D50.9 Iron deficiency anemia, unspecified; Z53.32 Thoracoscopic surgical procedure converted to open procedure

== ENCOUNTER → 2018-01-29 12:40 | Outpatient (CLI) | payer MEDICAID ==
[2017-12-06 12:50] VITALS: BMI 32.9
[~2018-01-29 12:40] MED LIST changes: +CLEOCIN HCL150 MG PO; +DURAGESIC1 PATCH .7 TRANSDERM; +KEFLEX500 MG PO
== END | disposition home or self-care (01) ==
LOC: D.RAD
DX: J90 Pleural effusion, not elsewhere classified (principal)